=== PATIENT | female | born 1975 | race Hispanic/Latino ===

== ENCOUNTER 2017-08-01 08:11 | Emergency (ER) | payer SELFPAY ==
--- NOTE | 2017-08-01 09:02 | RAD ---
RADIOGRAPH RIGHT KNEE 4 VIEWS: Date: 08/01/17 HISTORY: 41-year-old female with persistent post-traumatic right knee pain after a fall. FINDINGS: No fracture or dislocation. Joint spaces are maintained without erosions or osteophytes. Small enthe sophyte at quadriceps tendon attachment site at anterior superior pole of patella. No moderate size or large joint effusion. No edema in Hoffa's fat pad. IMPRESSION: Essentially normal. POS: KEV
--- NOTE | 2017-08-01 10:29 | ULT ---
RIGHT LOWER EXTREMITY VENOUS DOPPLER: Date: 08/01/17 HISTORY: Right knee pain. COMPARISON: None. TECHNIQUE: Real-time Nazario scale, color Doppler, and spectral analysis, as well as augmentation and compression of the right lower extremity venous system was performed with a linear transducer. FINDINGS: The right common femoral, femoral, proximal portion of greater saphenous and deep femoral vein, as w ell as popliteal and posterior tibial vein were interrogated. No deep venous thrombosis. Mild edema. IMPRESSION: No deep venous thrombosis. POS: CET
== END 2017-08-01 10:23 | disposition home or self-care (01) ==
LOC: ERS 08:11
DX: M77.9 Enthesopathy, unspecified (principal)

== ENCOUNTER 2019-10-07 11:41 | Emergency (ER) | payer SELFPAY ==
[2019-10-07] MEDS ORDERED: Ketorolac Tromethamine 30 MG/ML VIAL ONE (12:13)
--- NOTE | 2019-10-07 12:52 | RAD ---
EXAM: Right rib series with chest x-ray HISTORY: Rib pain after hearing a pop putting up [place] lights last night. COMPARISON: None FINDINGS: Single view of the chest shows a normal sized cardiomediastinal silhouette. There is no jazzy dence of consolidation, mass, or pleural effusion. Multiple views of the right ribs shows no evidence of displaced rib fracture. No underlying pleural t hickening or pneumothorax are seen. IMPRESSION: 1. No evidence of displaced rib fracture. 2. No evidence of acute cardiopulmonary disease.
== END 2019-10-07 13:11 | disposition home or self-care (01) ==
LOC: ERS 11:41
DX: S20.211A Contusion of right front wall of thorax, initial encounter (principal); X50.1XXA Overexertion from prolonged static or awkward postures, initial encounter
CPT/HCPCS: 96372; J1885

== ENCOUNTER 2019-12-12 09:28 | Emergency (ER) | payer SELFPAY ==
[2019-12-12] MEDS ORDERED: Ketorolac Tromethamine 60 MG/2 ML VIAL ONE (09:56)
== END 2019-12-12 10:07 | disposition home or self-care (01) ==
LOC: ERS 09:28
DX: M54.5 Low back pain (principal)
CPT/HCPCS: 96372; 99283; J1885